=== PATIENT | male | born 1980 | race Caucasian/White ===

== ENCOUNTER 2023-08-17 17:57 | Outpatient (RCR) | payer OTHER, SELFPAY | END 2023-08-17 23:59 | disposition home or self-care (01) | LOC: RPT 17:57 | PROVIDERS: ATTENDING PHYSICIAN Family Medicine | DX: M54.51 Vertebrogenic low back pain (principal); M54.2 Cervicalgia | CPT/HCPCS: 97110; 97112 ==

== ENCOUNTER 2023-09-14 18:16 | Outpatient (RCR) | payer OTHER, SELFPAY | END 2023-09-14 23:59 | disposition home or self-care (01) | LOC: RPT 18:16 | PROVIDERS: ATTENDING PHYSICIAN Family Medicine | DX: M54.51 Vertebrogenic low back pain (principal); M54.2 Cervicalgia; Z73.6 Limitation of activities due to disability | CPT/HCPCS: 97110; 97112 ==

== ENCOUNTER 2023-10-19 17:55 | Outpatient (RCR) | payer OTHER, SELFPAY | END 2023-10-19 23:59 | disposition home or self-care (01) | LOC: RPT 17:55 | PROVIDERS: ATTENDING PHYSICIAN Family Medicine | DX: M54.51 Vertebrogenic low back pain (principal); M54.2 Cervicalgia; Z73.6 Limitation of activities due to disability; R26.2 Difficulty in walking, not elsewhere classified; M62.81 Muscle weakness (generalized) | CPT/HCPCS: 97010; 97110; 97112 ==

== ENCOUNTER 2024-06-26 18:44 | Emergency (ER) | payer BC, OTHER, SELFPAY ==
[2024-06-26 18:50] VITALS: BP 163/94
[2024-06-26 19:29] VITALS: BP 109/69
--- NOTE | 2024-06-26 19:32 | ED.GENMED ---
History of Present Illness
General
Chief Complaint: Chest Pain
Source: patient
Exam Limitations: none
Time Seen by Provider: 06/26/24 19:28
History of Present Illness
History of Present Illness:
See MDM
Past History
Past History
ED Past Medical History: Other (Lumbar radiculopathy) and Other (DVT/PE)
ED Past Surgical History: Orthopedic (Lumbar microdiscectomy)
Social History
Tobacco: Non-smoker
Alcohol: None
Drug: None
Personal: Single
Living: with family
Employment: Employed
Phy Exam
Physical Exam
Physical Exam:
See MDM
Scores
Heart Score for Chest Pain Patients
STEMI patient?: No
History: Slightly or Non-Suspicious
ECG: Normal
Age: </= 45 years
Risk Factors: 1 or 2 Risk Factors
Troponin: </= Normal Limit
Heart Score for Chest Pain Patients: 1
Heart Score Risk: 2.5% MACE over next 6 weeks
Course
Orders/Labs/Results
Orders:
Orders
06/26/24 18:49
Electrocardiogram (*1) Urgent
Reason for Study: Chest Pain
EKG- Treatment ONCE
06/26/24 19:28
Cardiac Monitoring- Treatment ONCE
IV Insert/Care/Rem.- Treatment PRN
06/26/24 19:31
Complete Blood Count/With Diff Urgent
Comprehensive Metabolic Panel Urgent
Troponin I Urgent
06/26/24 19:32
CT Chest Pe Study Urgent
Comment:
Reason For Exam: SOB, Chest pain
Morphine Sulfate 4 mg IV NOW STA
Abnormal Lab Results
06/26/24
19:31
Absolute Monos (auto) 0.7 H 10^3/uL
(0.1-0.6)
Carbon Dioxide 31 H mmol/L
(22-30)
06/26/24 19:31
06/26/24 19:31
Vital Signs
Initial and Last Documented VS:
Initial Vital Signs
Temp Pulse Resp BP Pulse Ox
98.7 F 92 16 163/94 98
06/26/24 18:50 06/26/24 18:50 06/26/24 18:50 06/26/24 18:50 06/26/24 18:50
Last Documented Vital Signs
Temp Pulse Resp BP Pulse Ox
98.7 F 92 16 163/94 98
06/26/24 18:50 06/26/24 18:50 06/26/24 18:50 06/26/24 18:50 06/26/24 18:50
MDM/Problems Addressed
Differential Diagnosis Includes:
HPI and MDM Narrative:
43-year-old male presenting for evaluation of chest pain that is relatively constant for the past 4 days. Although he is compliant with his Eliquis from prior PE, patient states this is similar presentation. EKG is nonischemic. Given his history,
will obtain CT PE. Given duration of symptoms, will obtain troponin
Physical exam
General: Well appearing and non-toxic
HEENT: protecting airway
Neck: appears supple
CV: No evidence of cyanosis. Regular rate and rhythm
Resp: No accessory muscle use. Lungs clear
Abd: Non-distended
Extremities: No deformities no leg edema or unilateral tenderness
Neuro: alert
Psych: Normal affect
Skin: Intact
Problems Addressed including Acute and Chronic Conditions affecting care:
1. Chest pain
Acuity: acute
Prognosis: stable
Details: Given duration of symptoms with nonischemic EKG, doubt ACS. Will obtain troponin. Given his prior history of PE, will obtain CT PE
Updates
Troponin negative. CT PE negative. Patient feels better and feels comfortable going home
Differential Diagnosis (but not limited to): Pleuritic chest pain, ACS, PE
Testing considered: Chest x-ray
Drug therapy (if applicable): OTC meds, please see d/c instruction regarding Rx drugs
Amount and/or Complexity of Data Reviewed
Clinical info obtained from: Patient
External data reviewed: N/A
Labs I independently reviewed (but not limited to): Troponin normal
Radiology: The CT scan was personally and independently reviewed. In addition, official CT report reviewed.
Pulse Ox: not hypoxic
EKG independently reviewed: Sinus rhythm, normal axis, no STEMI
Compliance Nurse: N/A
Critical Care: N/A
Risk of Complication:
Social Determinants of health: Good social support
Discussed with other providers: N/A
Escalation of Care includes Admit/Obs: After being observed in the Emergency Department, pt stable for discharge.
Occasional wrong word or 'sound a like' substitutions may have occurred due to the inherent limitations of voice recognition software. Read the chart carefully and recognize, using context, where substitutions have occurred.
*Critical Care Note
Total Time (30-74mins, 75-104mins- exclusive of procedures): Not Applicable
ED Attending Note
-
Portions of this chart may have been created with voice recognition software.� Occasional wrong word or��sound alike� substitutions may have occurred due to the inherent limitations of voice recognition software.
Discharge Plan
Departure
Patient Disposition: Home (Routine Discharge)
Date of Disposition: 06/26/24
Time of Disposition: 21:22
Patient with high blood pressure during this ER visit?: Yes
Discharge Problem:
Chest pain
Instructions: Chest Pain That Is Not Caused by the Heart (DC), BLOOD PRESSURE
Prescriptions:
No Action
sennosides [senna] 8.6 MG tablet
17.2 mg PO BID 0RF
acetaminophen [Tylenol Extra Strength] 500 MG tablet
1,000 mg PO Q6H Qty: 60 0RF
Rx Instructions:
Do NOT exceed >4000 mg daily.
docusate sodium 100 MG capsule
100 mg PO BID 0RF
magnesium hydroxide 30 ML suspension
30 ml PO HSPRN PRN (Reason: constipation) Qty: 7 0RF
Rx Instructions:
Take as needed for constipation unrelieved by Colace and Senna.
cephalexin 500 MG capsule
500 mg PO Q6H Qty: 60 0RF
Rx Instructions:
Take every 6 hours until finished.
Saccharomyces boulardii 250 MG capsule
250 mg PO BID Qty: 10 0RF
Rx Instructions:
Over the counter. Take while on antibiotic.
If unavailable, choose another probiotic.
apixaban [Eliquis] 5 MG tablet
2.5 mg PO BID Qty: 0 0RF
Rx Instructions:
Resume 01/15/22 AM per surgeon.
oxycodone 5 MG tablet
5 mg PO Q6HPRN PRN (Reason: moderate-severe pain) Qty: 30 0RF
Rx Instructions:
1 tab moderate pain or 2 if pain severe
Dx lami
ongoing therapy
cyclobenzaprine 10 MG tablet
10 mg PO TIDPRN PRN (Reason: spasm) Qty: 20 0RF
ondansetron 4 mg tablet,disintegrating
4 mg PO Q8H PRN (Reason: nausea and vomiting) 5 Days Qty: 10 0RF
Referrals:
NONE,* [Family Provider] -
Activity Restrictions/Additional Instructions:
Please return for any worsening symptoms.
You may return at any time if you have further concerns.
Please follow up with your doctor at the first available appointment, preferably this week.
Thank you for choosing [facility].
Interventions
Interventions:
*Risk Screen - Suicide Last Done: 06/26/24 20:30
*Neglect/Abuse Screening Last Done: 06/26/24 20:30
ED- Cardiac Assessment Last Done: 06/26/24 19:51
Discharge Date and Time
Print Language: SALVADOREAN
[2024-06-26 19:43] LABS: % Basophils 0.6 % (0-2); % Eosinophils 3.2 % (0-6); % Immature Granulocytes 0.2 % (0-0.5); % Lymphocytes 28.9 % (20.5-51.1); % Monocytes 7.4 % (1.7-9.3); % Neutrophils 59.7 % (42.2-75.2); Absolute Basophils 0.1 10^3/uL (0-0.2); Absolute Eosinophils 0.3 10^3/uL (0-0.7); Absolute Lymphocytes 2.9 10^3/uL (1.2-3.4); Absolute Monocytes 0.7 10^3/uL (0.1-0.6); Absolute Neutrophils 5.9 10^3/uL (1.4-6.5); Hematocrit 40.9 % (39.0-52.0); Hemoglobin 14.2 g/dL (13.0-18.0); Mean Corp Hgb Conc. 34.7 g/dL (33.0-37.0); Mean Corpuscular Hgb 29.5 pg (27.0-31.0); Mean Corpuscular Volume 84.9 fL (80.0-94.0); Mean Platelet Volume 9.7 fL (7.4-10.4); Nucleated Red Blood Cells % 0 % (-); Platelet Count 184 10^3/uL (130-400); Red Blood Cell Count 4.82 10^6/uL (4.70-6.10); White Blood Cell Count 9.9 10^3/uL (4.8-10.8)
[2024-06-26 19:53] VITALS: BMI 28.4
[2024-06-26 19:58] LABS: ALT (SGPT) 26 U/L (0-50); AST (SGOT) 29 U/L (17-59); Albumin 4.6 g/dl (3.5-5.0); Alkaline Phosphatase 50 U/L (38-126); Blood Urea Nitrogen 18 mg/dl (9-20); Calcium 9.7 mg/dl (8.4-10.2); Carbon Dioxide 31 mmol/L (22-30); Chloride 101 mmol/L (98-107); Estimated Creatinine Clearance 102 ml/min; Glucose 85 mg/dl (70-99); Sodium 140 mmol/L (135-145); Total Bilirubin 0.5 mg/dl (0.2-1.3); Total Protein 7.2 g/dl (6.3-8.2); eGFR > 60.00
[2024-06-26] MEDS: MORPHINE SULFATE 4 MG IV (20:03)
[2024-06-26 20:08] LABS: Troponin I < 0.012 ng/ml
[2024-06-26 21:20] VITALS: BP 119/69
== END 2024-06-26 21:45 | disposition home or self-care (01) ==
LOC: EMR 18:44
PROVIDERS: EMERGENCY PHYSICIAN Student in an Organized Health Care Education/Training Program; FAMILY PHYSICIAN Family Medicine
DX: R07.9 Chest pain, unspecified (principal); Z86.711 Personal history of pulmonary embolism; Z86.718 Personal history of other venous thrombosis and embolism; Z79.01 Long term (current) use of anticoagulants
CPT/HCPCS: 96374; 99284; 71275; 80053; 84484; 85025; 93005; Q9967

== ENCOUNTER 2024-10-04 13:06 | Inpatient (IN) | payer OTHER, SELFPAY ==
[2024-10-01 07:26] VITALS: BP 146/103
--- NOTE | 2024-10-01 08:00 | ED.GENMED ---
History of Present Illness
General
Chief Complaint: Musculo-Skeletal Complaint
Source: patient
Exam Limitations: none
Time Seen by Provider: 10/01/24 07:49
Nursing documentation reviewed up to this point in time: agreed with
History of Present Illness
History of Present Illness:
43-year-old male with past medical history of DVT/PE on Eliquis who presents to the emergency department for evaluation of left shoulder/chest pain. Patient reports pain started Monday night�he says he woke up with severe pain in the left scapular
region radiating towards the shoulder and left chest as well as the left side of his neck. His pain has been constant since then. Somewhat worse with movement but essentially consistent throughout. He reports a sharp stabbing pain 'like knives in
my back.' He does report some associated weakness/paresthesias in the left arm. He denies any shortness of breath. He denies any recent cough, fever, chills. He has not noticed any swelling or pain in the legs. He says that he did have similar
symptoms with a PE in the past but has been compliant with Eliquis. He denies any trauma or injury. He does note that he was seen at urgent care yesterday for the symptoms and was started on steroid pack and muscle relaxer neither of which has
helped; he has also tried Tylenol again with no response.
Past History
Past History
ED Past Medical History: Other (Lumbar radiculopathy) and Other (DVT/PE)
ED Past Surgical History: Orthopedic (Lumbar microdiscectomy)
Social History
Tobacco: Non-smoker
Alcohol: None
Drug: None
Personal: Single
Living: with family
Employment: Employed
Review of Systems
Review of Systems
All Other Systems: ROS reviewed and negative except as documented in HPI and ROS
Constitutional: Denies fever
Respiratory: Denies cough or trouble breathing
Cardiac: Reports chest pain; Denies palpitations
ABD/GI: Denies abdominal pain, nausea or vomiting
: Denies flank pain
Musculoskeletal: Reports joint pain (Shoulder pain/scapular pain) and neck pain
Neurological: Reports weakness and numbness; Denies headache
Phy Exam
Physical Exam
Physical Exam:
General: Awake, alert, oriented x3; appears uncomfortable
Head: Normocephalic, atraumatic
Eyes: Conjunctiva normal
Throat: Airway intact, handling secretions
Neck: Trachea midline, mild tenderness left paraspinal and upper trapezius region but no midline cervical tenderness
Back: No signs of trauma to the back or flank, mild tenderness in the suprascapular region but no tenderness in the thoracic or lumbar region
Lungs: Clear to auscultation bilaterally, no wheezing, rales, rhonchi
Heart: Regular rate and rhythm, no murmurs, gallops, or rubs; no anterior chest wall tenderness
Abd: Soft, non distended, nontender
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
Skin: no rash in area of concern
Extremities: No edema in extremities, no calf tenderness, equal pulses in all extremities
Scores
Heart Failure Risk
Heart Failure Risk Score: Not Applicable
Heart Score for Chest Pain Patients
STEMI patient?: No
History: Slightly or Non-Suspicious
ECG: Normal
Age: </= 45 years
Risk Factors: 1 or 2 Risk Factors
Troponin: </= Normal Limit
Heart Score for Chest Pain Patients: 1
Heart Score Risk: 2.5% MACE over next 6 weeks
Withdrawal Assessment of Alcohol
Withdrawal Assessment Completed?: Not applicable
Course
Orders/Labs/Results
Orders:
Orders
10/01/24 07:29
Electrocardiogram (*1) Urgent
Reason for Study: Chest Pain
EKG- Treatment ONCE
10/01/24 07:59
CT Chest PE Study Urgent
Comment:
Reason For Exam: left sided CP, scapular pain, h/o PE
10/01/24 08:00
Morphine Sulfate 4 mg IV NOW STA
10/01/24 08:22
Complete Blood Count/With Diff Urgent
Comprehensive Metabolic Panel Urgent
PTT Urgent
Prothrombin Time Urgent
Troponin I Urgent
10/01/24 10:43
Gabapentin [Neurontin] 100 mg PO NOW STA
HYDROmorphone [Dilaudid] 1 mg IV NOW STA
10/01/24 12:36
HYDROmorphone [Dilaudid] 0.5 mg IV NOW STA
Ondansetron Injectable [Zofran] 4 mg IV NOW STA
Abnormal Lab Results
10/01/24
08:22
WBC 11.9 H 10^3/uL
(4.8-10.8)
Abs Immat Gran (auto) 0.1 H 10^3/uL
(0-0.05)
Absolute Neuts (auto) 10.3 H 10^3/uL
(1.4-6.5)
Absolute Lymphs (auto) 1.1 L 10^3/uL
(1.2-3.4)
Immature Gran % 0.6 H %
(0-0.5)
Neutrophils % 86.3 H %
(42.2-75.2)
Lymphocytes % 9.4 L %
(20.5-51.1)
Glucose 120 H mg/dl
(70-99)
10/01/24 08:22
10/01/24 08:22
Vital Signs
Initial and Last Documented VS:
Initial Vital Signs
Temp Pulse Resp BP Pulse Ox
36.7 C 89 18 146/103 97
10/01/24 07:26 10/01/24 07:26 10/01/24 07:26 10/01/24 07:26 10/01/24 07:26
Last Documented Vital Signs
Temp Pulse Resp BP Pulse Ox
36.7 C 66 13 146/103 97
10/01/24 07:26 10/01/24 09:30 10/01/24 09:30 10/01/24 07:26 10/01/24 07:26
MDM/Problems Addressed
Differential Diagnosis Includes:
Radiculopathy, muscular strain/rotator cuff pathology, tendinitis, pulmonary embolism; aortic dissection, ACS considered much less likely clinically
MDM/Problems Addressed:
43-year-old male presents for evaluation of pain in the left shoulder/scapula radiating towards the chest, neck; associated weakness in the left arm. He denies any injury. He is concerned because he says he had similar symptoms with PE in the past
although has been maintained on Eliquis. Has been on steroid and muscle relaxer from urgent care yesterday but this did not help. He is hypertensive otherwise normal vitals. Physical exam as above. My clinical suspicion is that this is likely a
cervical radiculopathy. Nevertheless given his history we will check CT chest in an abundance of caution. Check basic labs, EKG, troponins. Will treat symptomatically. Reassess after the above.
Initial labs reviewed: CBC shows marginal leukocytosis 11.9, CMP no clinically significant abnormalities. Troponin undetectable and with consistent symptoms for over 24 hours this is sufficient to rule out acute IA. Awaiting results of CT. Vitals
have been stable.
CT head negative for any acute pathology. My clinical impression is that this is a cervical radiculopathy however his pain is quite extreme. He did not have any improvement with morphine he was given a dose of Dilaudid and gabapentin again no
improvement. Would hold on NSAIDs as he is on Eliquis. I do long discussion with the patient he feels that he can go home due to his degree of pain�admit for continued management of his pain. Case discussed with hospitalist.
Chronic conditions affecting care:
History of pulmonary embolism
Acute Exacerbation and/or Progression of Chronic Illness:
Acutely hypertensive likely from pain�treat symptomatically but hold on emergent antihypertensives for now
Acute Exacerbation and/or Progression of Chronic Illness: HTN
*Radiology
Radiology exam reviewed: radiology read reviewed
*Pulse Oximetry
Patient hypoxic: no
*EKG
Interpreted by ED Provider?: Yes
Heart Rate: 94
Rate: normal
Rhythm: sinus
[place]: normal axis
Interval: normal interval
QRS Pattern: normal QRS
Ischemia: non-specific ST changes
*Critical Care Note
Total Time (30-74mins, 75-104mins- exclusive of procedures): Not Applicable
Data Reviewed
Review of Other/Old Records Reveals: Labs and Records
Source: patient, records and family (Mother who is at bedside)
Patient Management
Discussion with other providers: Hospitalist (Discussed with hospitalist)
Escalation/DeEscalation of care consider admission/obs:
Admission indicated
ED Attending Note
-
Portions of this chart may have been created with voice recognition software.� Occasional wrong word or��sound alike� substitutions may have occurred due to the inherent limitations of voice recognition software.
Discharge Plan
Departure
Patient Disposition: Admit
Date of Disposition: 10/01/24
Time of Disposition: 12:35
Admit to doctor: Eric
Presentation/result/management discussed w/ accepting MD/DO: Hospitalist
Discharge Problem:
Left shoulder pain, Cervical radiculopathy
Prescriptions:
No Action
sennosides [senna] 8.6 MG tablet
17.2 mg PO BID 0RF
acetaminophen [Tylenol Extra Strength] 500 MG tablet
1,000 mg PO Q6H Qty: 60 0RF
Rx Instructions:
Do NOT exceed >4000 mg daily.
docusate sodium 100 MG capsule
100 mg PO BID 0RF
magnesium hydroxide 30 ML suspension
30 ml PO HSPRN PRN (Reason: constipation) Qty: 7 0RF
Rx Instructions:
Take as needed for constipation unrelieved by Colace and Senna.
cephalexin 500 MG capsule
500 mg PO Q6H Qty: 60 0RF
Rx Instructions:
Take every 6 hours until finished.
Saccharomyces boulardii 250 MG capsule
250 mg PO BID Qty: 10 0RF
Rx Instructions:
Over the counter. Take while on antibiotic.
If unavailable, choose another probiotic.
apixaban [Eliquis] 5 MG tablet
2.5 mg PO BID Qty: 0 0RF
Rx Instructions:
Resume 01/15/22 AM per surgeon.
oxycodone 5 MG tablet
5 mg PO Q6HPRN PRN (Reason: moderate-severe pain) Qty: 30 0RF
Rx Instructions:
1 tab moderate pain or 2 if pain severe
Dx lami
ongoing therapy
cyclobenzaprine 10 MG tablet
10 mg PO TIDPRN PRN (Reason: spasm) Qty: 20 0RF
ondansetron 4 mg tablet,disintegrating
4 mg PO Q8H PRN (Reason: nausea and vomiting) 5 Days Qty: 10 0RF
Referrals:
Chinmay Contreras DO [Family Provider] -
Interventions
Interventions:
*Risk Screen - Suicide Last Done: 10/01/24 07:26
*General Assessment Last Done: 10/01/24 07:26
*Neglect/Abuse Screening Last Done: 10/01/24 07:26
ED- Fall Risk Assessment Last Done: 10/01/24 08:11
*ED COVID-19 Vaccine History Last Done: 10/01/24 07:26
ED-Musculoskeletal Assessment Last Done: 10/01/24 08:11
Discharge Date and Time
Print Language: ALGERIAN
[2024-10-01 08:11] VITALS: BMI 29.2
[2024-10-01] MEDS: MORPHINE SULFATE 4 MG IV (08:23)
[2024-10-01 08:45] LABS: % Basophils 0.2 % (0-2); % Eosinophils 0.1 % (0-6); % Immature Granulocytes 0.6 % (0-0.5); % Lymphocytes 9.4 % (20.5-51.1); % Monocytes 3.4 % (1.7-9.3); % Neutrophils 86.3 % (42.2-75.2); Absolute Immature Granulocytes 0.1 10^3/uL (0-0.05); Absolute Lymphocytes 1.1 10^3/uL (1.2-3.4); Absolute Monocytes 0.4 10^3/uL (0.1-0.6); Absolute Neutrophils 10.3 10^3/uL (1.4-6.5); Hematocrit 44.3 % (39.0-52.0); Hemoglobin 14.7 g/dL (13.0-18.0); Mean Corp Hgb Conc. 33.2 g/dL (33.0-37.0); Mean Corpuscular Hgb 28.5 pg (27.0-31.0); Mean Corpuscular Volume 85.9 fL (80.0-94.0); Mean Platelet Volume 9.3 fL (7.4-10.4); Nucleated Red Blood Cells % 0 % (-); Platelet Count 194 10^3/uL (130-400); Red Blood Cell Count 5.16 10^6/uL (4.70-6.10); Red Cell Dist. Width 12.1 % (11.5-14.5); White Blood Cell Count 11.9 10^3/uL (4.8-10.8)
[2024-10-01 08:50] LABS: APTT 25.5 Sec (23.4-35.0); INR 1.09; PT 14.4 Sec (11.4-14.6)
[2024-10-01 08:56] LABS: ALT (SGPT) 33 U/L (0-50); AST (SGOT) 37 U/L (17-59); Alkaline Phosphatase 66 U/L (38-126); Blood Urea Nitrogen 15 mg/dl (9-20); Calcium 9.7 mg/dl (8.4-10.2); Carbon Dioxide 26 mmol/L (22-30); Chloride 104 mmol/L (98-107); Estimated Creatinine Clearance 113 ml/min; Glucose 120 mg/dl (70-99); Potassium 4.6 mmol/L (3.5-5.1); Sodium 140 mmol/L (135-145); Total Bilirubin 0.7 mg/dl (0.2-1.3); Total Protein 7.9 g/dl (6.3-8.2); eGFR > 60.00
[2024-10-01 09:08] LABS: Troponin I < 0.012 ng/ml
[2024-10-01] MEDS: NEURONTIN 100 MG PO ×3 (11:07→21:12)
[2024-10-01] MEDS: DILAUDID 1 MG IV (11:07)
[2024-10-01] MEDS: DILAUDID 0.5 MG IV (12:43)
[2024-10-01] MEDS: ZOFRAN 4 MG IV ×2 (12:43→16:07)
--- NOTE | 2024-10-01 12:56 | HPS.HSE ---
Family Physician
-
Family Physician: Chinmay Contreras
Chief Complaint
-
upper back pain
History of Present Illness
43-year-old male past medical history of right lower extremity DVT, PE on Eliquis, myositis, degenerative disease, spinal stenosis, spondylolisthesis status post prior lumbar L4-L5 decompression laminectomy in 2019, spinal fusion of L4-L5 in 2021,
diverticulitis status post sigmoid colon resection, presenting with left shoulder and chest pain which started 2 days ago. He woke up with severe pain in the left scapular region rating towards the shoulder and left chest close left side of his
neck. Pain radiates down the arm down to his thumb and index finger. Pain has been constant since then. Pain is worse with movement. He has sharp stabbing pain. He has weakness in the left upper extremity but denies numbness or tingling.
He has some element of chronic upper back pain but nothing like this. Denies any history of trauma.
He denies shortness of breath. Denies any recent cough, fevers or chills. Denies any swelling or pain in the legs. He has had similar symptoms from PE in the past has been compliant with Eliquis. He was seen in urgent care today and was started
on Medrol Dosepak and muscle relaxer which has not helped. He tried Tylenol without response.
Medical History
Past Medical History
Past Medical History: Reports Other ( right lower extremity DVT, PE on Eliquis, myositis, degenerative disease, spinal stenosis, spondylolisthesis status post prior lumbar L4-L5 decompression laminectomy in 2019, spinal fusion of L4-L5 in 2021,
diverticulitis status post sigmoid colon resection,)
Past Surgical History: Reports Other (L4-L5 laminectomy, sigmoid bowel resection, spinal fusion,)
Social History
Tobacco: Non-smoker
Alcohol: None
Drug: None
Family History
Family History: Not pertinent
Allergies / Home Medications
Allergies reflects when Allergies were last updated in [facility].
Home Medications with original date entered in [facility]
Allergy/Medication List:
Allergies
Allergy/AdvReac Type Severity Reaction Status Date / Time
No Known Allergies Allergy Verified 05/11/23 15:55
Home Medications
apixaban 5 mg tablet (Eliquis) 2.5 mg (1/2 x 5 mg) PO BID ##0 01/13/22
acetaminophen 500 mg tablet (Tylenol Extra Strength) 1,000 mg PO Q6HPRN PRN mild pain 10/01/24
apixaban 2.5 mg tablet (Eliquis) 2.5 mg PO BID 10/01/24
methylprednisolone 4 mg tablets in a dose pack 4 mg PO PER PKG DIR 10/01/24
Review of Systems
-
History Source: Patient
A 12 point ROS was completed and negative except as noted: Yes
Constitutional: Reports No Symptoms
EENT: Reports No Symptoms
Respiratory: Reports No Symptoms
Cardiac: Reports No Symptoms
Abdomen/GI: Reports No Symptoms
: Reports No Symptoms
Musculoskeletal: Reports See HPI
Skin: Reports No Symptoms
Neurological: Reports No Symptoms
Endocrine: Reports No Symptoms
Hematologic/Lymphatic: Reports No Symptoms
Psych: Reports No Symptoms
Physical Exam
Vital Signs
Vital Signs
Temp Pulse Resp BP Pulse Ox
98.1 F 66 13 146/103 97
10/01/24 07:26 10/01/24 09:30 10/01/24 09:30 10/01/24 07:26 10/01/24 07:26
Physical Exam
General: Well Developed, Well Nourished and No Apparent Distress
HEENT: NormoCephalic, Moist mucous membranes and Atraumatic
Respiratory: Clear
Cardiac: S1/S2 and Regular Rhythm; No Murmur or Rub
GI: Soft, Non Tender, Non Distended and Normal Bowel Sounds; No Organomegaly
Rectal: Deferred by Provider
Musculoskeletal: No Clubbing, No Cyanosis, No Edema and Other (tenderness left upper scapular region, tenderness of left deltoid and weakness of left upper extremity )
Skin: No Rash
Neuro: Nonfocal/grossly intact
Laboratory Results
-
10/01/24 08:22
10/01/24 08:22
Laboratory Results
PT 14.4 Sec (11.4-14.6) 10/01/24 08:22
INR 1.09 10/01/24 08:22
APTT 25.5 Sec (23.4-35.0) 10/01/24 08:22
Total Bilirubin 0.7 mg/dl (0.2-1.3) 10/01/24 08:22
AST 37 U/L (17-59) 10/01/24 08:22
ALT 33 U/L (0-50) 10/01/24 08:22
Alkaline Phosphatase 66 U/L (38-126) 10/01/24 08:22
Troponin I < 0.012 ng/ml 10/01/24 08:22
Data Reviewed
-
Lab Data: Labs Reviewed by me
Old Records: Reviewed
Impression/Plan
-
IMPRESSION:
PLAN:
# Cervical radiculopathy likely due to cervical disc disease
-Patient does have decreased strength in the left upper extremity
-CT PE shows no chest pathology
-Dilaudid, Tylenol, gabapentin, continue Medrol Dosepak
-Gabapentin 100 mg 3 times daily instead of Flexeril
-Cannot take NSAIDs due to history of DVT/PE
-Check cervical x-ray
-Consider cervical MRI given weakness of left upper extremity however outpatient follow-up is likely sufficient given only 2 days of symptoms
History of degenerative disc disease/spinal stenosis/spondylolisthesis status post prior L4-L5 laminectomy in 2019 and spinal fusion in 2021
History of DVT/PE
-Continue Eliquis
History of myositis
Diverticula status post bowel resection
Full code
DVT prophylaxis�Eliquis
Regular diet
[2024-10-01 13:02] VITALS: BP 137/77
[2024-10-01 15:55] VITALS: BP 166/57; BMI 28.4
[2024-10-01] MEDS: MEDROL 24 MG PO (16:48)
[2024-10-01] MEDS: ELIQUIS 2.5 MG PO (21:12)
[2024-10-01] MEDS: ROXICODONE 10 MG PO (22:12)
[2024-10-01 23:51] VITALS: BP 137/78
[2024-10-02] MEDS: TYLENOL 650 MG PO (04:34)
[2024-10-02 07:37] VITALS: BP 132/85
[2024-10-02] MEDS: NEURONTIN 100 MG PO ×3 (07:58→19:57)
[2024-10-02] MEDS: ELIQUIS 2.5 MG PO ×2 (07:58→19:57)
[2024-10-02] MEDS: MEDROL 20 MG PO (08:10)
[2024-10-02 10:40] LABS: % Basophils 0.1 % (0-2); % Eosinophils 0.2 % (0-6); % Immature Granulocytes 0.5 % (0-0.5); % Lymphocytes 12.7 % (20.5-51.1); % Monocytes 2.6 % (1.7-9.3); % Neutrophils 83.9 % (42.2-75.2); Absolute Immature Granulocytes 0.1 10^3/uL (0-0.05); Absolute Lymphocytes 1.7 10^3/uL (1.2-3.4); Absolute Monocytes 0.4 10^3/uL (0.1-0.6); Absolute Neutrophils 11.5 10^3/uL (1.4-6.5); Hematocrit 43.2 % (39.0-52.0); Hemoglobin 13.9 g/dL (13.0-18.0); Mean Corp Hgb Conc. 32.2 g/dL (33.0-37.0); Mean Corpuscular Hgb 28.3 pg (27.0-31.0); Mean Corpuscular Volume 87.8 fL (80.0-94.0); Mean Platelet Volume 9.7 fL (7.4-10.4); Nucleated Red Blood Cells % 0 % (-); Platelet Count 178 10^3/uL (130-400); Red Blood Cell Count 4.92 10^6/uL (4.70-6.10); Red Cell Dist. Width 12.2 % (11.5-14.5); White Blood Cell Count 13.7 10^3/uL (4.8-10.8)
[2024-10-02 11:14] LABS: ALT (SGPT) 26 U/L (0-50); AST (SGOT) 23 U/L (17-59); Albumin 4.7 g/dl (3.5-5.0); Alkaline Phosphatase 57 U/L (38-126); Blood Urea Nitrogen 17 mg/dl (9-20); Calcium 9.2 mg/dl (8.4-10.2); Carbon Dioxide 30 mmol/L (22-30); Chloride 97 mmol/L (98-107); Estimated Creatinine Clearance > 125 ml/min; Glucose 144 mg/dl (70-99); Sodium 137 mmol/L (135-145); Total Bilirubin 0.9 mg/dl (0.2-1.3); Total Protein 7.2 g/dl (6.3-8.2); eGFR > 60.00
--- NOTE | 2024-10-02 13:05 | W.PN.HOSP.TC ---
Today's Communication/Plan
-
Monitor vital signs see plan
Add Valium
Continue with pain management
Continue with steroids
Check shoulder x-ray
Assessment / Plan
Assessment / Plan
General: Well Developed, Well Nourished and No Apparent Distress
HEENT: NormoCephalic, Moist mucous membranes and Atraumatic
Respiratory: Clear
Cardiac: S1/S2 and Regular Rhythm; No Murmur or Rub
GI: Soft, Non Tender, Non Distended and Normal Bowel Sounds
Musculoskeletal: No Edema and Other (tenderness left upper scapular region, tenderness of left deltoid and weakness of left upper extremity )
Skin: No Rash
Neuro: Nonfocal/grossly intact
Cervical radiculopathy likely due to cervical disc disease
-Patient does have decreased strength in the left upper extremity
-CT PE shows no chest pathology
-Tylenol, gabapentin, continue Medrol Dosepak
-Gabapentin 100 mg 3 times daily instead of Flexeril
-Cannot take NSAIDs due to history of DVT/PE
cervical x-ray with degenerative disc disease at C5-C6.
-Consider cervical MRI given weakness of left upper extremity if symptoms do not improve
check CK
add valium
Check shoulder x-ray
History of degenerative disc disease/spinal stenosis/spondylolisthesis status post prior L4-L5 laminectomy in 2019 and spinal fusion in 2021
History of DVT/PE
-Continue Eliquis
History of myositis
Diverticula status post bowel resection
Full code
DVT prophylaxis�Eliquis
Anticipated Discharge: Within 24 hours
Subjective/Interval History
-
Date of Service: October 02, 2024
has pain
Objective Data
-
Labs:
Laboratory Results
10/02/24
10:00
WBC 13.7 H
Hgb 13.9
Hct 43.2
Plt Count 178
Sodium 137
Potassium 4.0
Chloride 97 L
Carbon Dioxide 30
BUN 17
Creatinine 0.9
Glucose 144 H
Calcium 9.2
Total Bilirubin 0.9
AST 23
ALT 26
Alkaline Phosphatase 57
Vital Signs:
Vital Signs
Temp Pulse Resp BP Pulse Ox
98 F 72 18 132/85 99
10/02/24 07:37 10/02/24 07:37 10/02/24 07:37 10/02/24 07:37 10/02/24 07:37
I&O
10/01/24 10/02/24 10/03/24
06:59 06:59 06:59
Intake Total 480 / 480
Balance 480 / 480
--- NOTE | 2024-10-02 13:07 | CM ---
Pt seen bedside w/ his mother. Initial assessment completed. Admitted for upper back pain.
Pt reports that he lives alone in a 2STH- 1 step to enter the home
Pt is independent w/ ambulation, denies any DME use
Denies SNF/VN/PT. Pt stated he did engage in OP therapy in the past
Address, point of contact and insurance verified
PCP: Dr. Contreras
Pharmacy: [facility]
Pt is currently admitted as OBS. OOBS form reviewed, pt given copy, copy placed on chart
PT/OT ordered, will await therapy recommendations if any
Plan: CM will cont to follow hospital course
[2024-10-02] MEDS: MORPHINE SULFATE 4 MG IV ×2 (13:17→19:57)
[2024-10-02] MEDS: VALIUM 2 MG PO ×2 (13:17→19:57)
[2024-10-02 13:38] LABS: Creatine Phosphokinase 366 U/L (55-170)
[2024-10-02 13:52] VITALS: BP 164/94; PULSE 80
[2024-10-02 15:00] VITALS: BP 135/75
[2024-10-02 23:22] VITALS: BP 135/64
[2024-10-03] MEDS: MORPHINE SULFATE 4 MG IV ×3 (03:43→22:47)
[2024-10-03 07:43] VITALS: BP 128/80
[2024-10-03] MEDS: ELIQUIS 2.5 MG PO ×2 (07:59→19:17)
[2024-10-03] MEDS: MEDROL 16 MG PO (07:59)
[2024-10-03] MEDS: VALIUM 2 MG PO ×2 (07:59→19:17)
[2024-10-03] MEDS: NEURONTIN 100 MG PO (07:59)
[2024-10-03 08:45] LABS: Creatine Phosphokinase 140 U/L (55-170)
[2024-10-03] MEDS: TYLENOL 1000 MG PO ×3 (10:46→22:46)
[2024-10-03 11:07] LABS: % Basophils 0.4 % (0-2); % Eosinophils 0.9 % (0-6); % Immature Granulocytes 0.3 % (0-0.5); % Lymphocytes 29.5 % (20.5-51.1); % Monocytes 7.9 % (1.7-9.3); Absolute Eosinophils 0.1 10^3/uL (0-0.7); Absolute Lymphocytes 3.1 10^3/uL (1.2-3.4); Absolute Monocytes 0.8 10^3/uL (0.1-0.6); Absolute Neutrophils 6.3 10^3/uL (1.4-6.5); Hematocrit 44.9 % (39.0-52.0); Hemoglobin 14.6 g/dL (13.0-18.0); Mean Corp Hgb Conc. 32.5 g/dL (33.0-37.0); Mean Corpuscular Hgb 28.5 pg (27.0-31.0); Mean Corpuscular Volume 87.5 fL (80.0-94.0); Mean Platelet Volume 9.5 fL (7.4-10.4); Nucleated Red Blood Cells % 0 % (-); Platelet Count 171 10^3/uL (130-400); Red Blood Cell Count 5.13 10^6/uL (4.70-6.10); Red Cell Dist. Width 12.3 % (11.5-14.5); White Blood Cell Count 10.3 10^3/uL (4.8-10.8)
--- NOTE | 2024-10-03 11:37 | W.PN.HOSP.TC ---
Today's Communication/Plan
-
Monitor vital signs see plan
Continue with steroids
Check ESR, CRP
Check C-spine MRI
Continue with pain management
Assessment / Plan
Assessment / Plan
General: Well Developed, Well Nourished and No Apparent Distress
HEENT: NormoCephalic, Moist mucous membranes and Atraumatic
Respiratory: Clear
Cardiac: S1/S2 and Regular Rhythm; No Murmur or Rub
GI: Soft, Non Tender, Non Distended and Normal Bowel Sounds
Musculoskeletal: No Edema and Other (tenderness left upper scapular region, tenderness of left deltoid and weakness of left upper extremity )
Skin: No Rash
Neuro: Nonfocal/grossly intact
Cervical radiculopathy likely due to cervical disc disease
-Patient does have decreased strength in the left upper extremity and significant pain
Given no improvement with medications, check MRI
If symptoms continue to not improve then may need further evaluation with orthopedics
-CT PE shows no chest pathology
-Tylenol, gabapentin, continue Medrol Dosepak
-Gabapentin 3 times daily instead of Flexeril
-Cannot take NSAIDs due to history of DVT/PE
cervical x-ray with degenerative disc disease at C5-C6.
Mild rhabdo on admission, now improved
added valium
shoulder x-ray without acute abnormality
Check ESR, CRP
History of degenerative disc disease/spinal stenosis/spondylolisthesis status post prior L4-L5 laminectomy in 2019 and spinal fusion in 2021
History of DVT/PE
-Continue Eliquis
History of myositis
Diverticula status post bowel resection
Full code
DVT prophylaxis�Eliquis
Anticipated Discharge: Within 24 hours
Subjective/Interval History
-
Date of Service: October 03, 2024
Still has significant pain and weakness in left upper extremity
Objective Data
-
Labs:
Laboratory Results
10/03/24
11:00
WBC 10.3
Hgb 14.6
Hct 44.9
Plt Count 171
Vital Signs:
Vital Signs
Temp Pulse Resp BP Pulse Ox
97.9 F 68 18 128/80 100
10/03/24 07:43 10/03/24 07:43 10/03/24 07:43 10/03/24 07:43 10/03/24 07:43
I&O
10/02/24 10/03/24 10/04/24
06:59 06:59 06:59
Intake Total 480 / 480 840 / 840
Balance 480 / 480 840 / 840
[2024-10-03 11:54] VITALS: BP 142/84; PULSE 94
[2024-10-03 13:23] LABS: C-Reactive Protein < 5.00 mg/L (0.0-10.00)
[2024-10-03 13:25] LABS: Erythrocyte Sed Rate 7 mm/hour (0-20)
[2024-10-03] MEDS: NEURONTIN 200 MG PO ×2 (15:13→21:20)
[2024-10-03 15:55] VITALS: BP 149/91
[2024-10-03 23:24] VITALS: BP 127/63
[2024-10-04] MEDS: TYLENOL 1000 MG PO ×3 (06:42→23:17)
[2024-10-04] MEDS: VALIUM 2 MG PO ×2 (06:42→19:23)
[2024-10-04 07:52] VITALS: BP 135/82
[2024-10-04] MEDS: ELIQUIS 2.5 MG PO ×2 (07:54→19:23)
[2024-10-04] MEDS: NEURONTIN 200 MG PO ×2 (07:54→16:10)
[2024-10-04] MEDS: MEDROL 12 MG PO (07:58)
--- NOTE | 2024-10-04 13:05 | W.PN.HOSP.TC ---
Today's Communication/Plan
-
Monitor vital signs see plan
Pain control
Neurosurgery evaluation
Continue with steroids
Assessment / Plan
Assessment / Plan
General: Well Developed, Well Nourished and No Apparent Distress
HEENT: NormoCephalic, Moist mucous membranes and Atraumatic
Respiratory: Clear
Cardiac: S1/S2 and Regular Rhythm; No Murmur or Rub
GI: Soft, Non Tender, Non Distended and Normal Bowel Sounds
Musculoskeletal: No Edema and Other (tenderness left upper scapular region, tenderness of left deltoid and weakness of left upper extremity )
Skin: No Rash
Neuro: Nonfocal/grossly intact
Cervical radiculopathy likely due to cervical disc disease
-Patient does have decreased strength in the left upper extremity and significant pain
Given no improvement with medications, checked MRI, MRI 10/03 with possible C6-C7 cord compression and central canal stenosis. No evidence for myelopathic signal. Neurosurgery consulted
-CT PE shows no chest pathology
-Tylenol, gabapentin, continue Medrol Dosepak
-Gabapentin 3 times daily instead of Flexeril
-Cannot take NSAIDs due to history of DVT/PE
cervical x-ray with degenerative disc disease at C5-C6.
Mild rhabdo on admission, now improved
added valium
shoulder x-ray without acute abnormality
ESR, CRP normal
History of degenerative disc disease/spinal stenosis/spondylolisthesis status post prior L4-L5 laminectomy in 2019 and spinal fusion in 2021
History of DVT/PE
-Continue Eliquis
History of myositis
Diverticula status post bowel resection
Full code
DVT prophylaxis�Eliquis
Anticipated Discharge: 24 - 48 hours
Subjective/Interval History
-
Date of Service: October 04, 2024
Still has left arm weakness and pain
Objective Data
-
Vital Signs:
Vital Signs
Temp Pulse Resp BP Pulse Ox
97.9 F 71 18 135/82 100
10/04/24 07:52 10/04/24 07:52 10/04/24 07:52 10/04/24 07:52 10/04/24 07:52
I&O
10/03/24 10/04/24 10/05/24
06:59 06:59 06:59
Intake Total 840 / 840 1080 / 1080
Balance 840 / 840 1080 / 1080
[2024-10-04] MEDS: MORPHINE SULFATE 4 MG IV ×2 (13:12→23:17)
--- NOTE | 2024-10-04 13:35 | CON.NS ---
Consultation
-
Date/Time Consultation Performed: 13:35 : 10/04/2024
Performing Provider: Kady
Chief Complaint
History of Present Illness
This is a neurosurgical consultation on a 43-year-old gentleman with active medical issues including myositis, degenerative disc disease, spinal stenosis, spondylolisthesis status post Lami and fusion, diverticulitis, who presented with left-sided
shoulder pain, chest pain started several days prior. He reported severe pain in the left scapular region, and radiating down to his thumb and index finger. He does have a history of having pulmonary embolus, and is on Eliquis for this. He was
admitted for further management of cervical radiculopathy, and ruled out for pulmonary embolus. MRI of the cervical spine was performed. He also was noted to have mild rhabdomyolysis on admission, which is since improved. He has been started on
gabapentin, Medrol Dosepak, Tylenol.
He was noted to have decreased strength in the left arm with significant pain. Neurosurgery consulted for further evaluation. Valium was also added as a muscle relaxant.
Patient seen and examined. He reports that the symptoms started immediately, with severe left-sided neck pain, left shoulder, and left upper extremity pain. Denies any lower extremity symptoms.
Review of Systems
-
10 point review of systems including constitutional, ENT, cardiovascular, respiratory, GI, , and neurologic, hematologic, neurologic, musculoskeletal, was performed, and was negative except for as stated in HPI.
Medication and Allergies
Home Medications
Home Medications
�Medication �Instructions �Recorded
acetaminophen 500 mg tablet 1,000 mg PO Q6HPRN PRN mild pain 10/01/24
(Tylenol Extra Strength)
apixaban 2.5 mg tablet (Eliquis) 2.5 mg PO BID 10/01/24
methylprednisolone 4 mg tablets in 4 mg PO PER PKG DIR 10/01/24
a dose pack
Allergies
Allergies
Allergy/AdvReac Type Severity Reaction Status Date / Time
No Known Allergies Allergy Verified 05/11/23 15:55
Physical Exam
-
Exam:
Awake, alert, mild distress. Ice pack on left shoulder
Able to sit up from a supine position
Limited range of motion of neck in both flexion, extension, bilateral lateral rotation, secondary to spasm.
Cranials 2 through 12 are grossly intact
Motor: 5/5 strength in right upper extremity in all muscle groups. Left arm 4/5 strength diffusely, increasingly pain limited proximally in left deltoid, and biceps, with give way weakness
Kendall sign absent.
Head is normocephalic atraumatic
Neck is supple
Breathing nonlabored
Cardiac: Regular rate
abdomen is soft
Extremities are warm
MRI cervical spine performed on 10/03/2024 was reviewed. Images were personally viewed and interpreted by me. There is straightening of the cervical lordosis, likely indicative of spasm. Patient has evidence of broad-based disc osteophyte
complexes at C5-C6, C6-C7 which causes bilateral foraminal impingement. I see no obvious evidence of cord signal change at these levels. 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
Problems
-
Problem Status Onset Code
Cervical radiculopathy M54.12
Left shoulder pain M25.512
Assessment / Plan
-
This is a 43-year-old gentleman who presents with neck pain, and bilateral arm, left upper extremity pain and weakness. Cervical MRI demonstrates multilevel cervical spondylosis, without any cord signal change.
Recommend treating patient for cervical radiculopathy. Continue with anti-inflammatories, can trial dexamethasone 10 mg IV x 1, and then 4 mg every 6 hours x 24 hours. If patient responds, can then transition back to Medrol Dosepak for discharge.
Agree with muscle relaxants
Agree with gabapentin 300 mg 3 times daily
Physical therapy as outpatient
Can consider cervical epidural injection either inpatient/outpatient upon discharge. If patient fails to respond, or continues to have persistent symptoms, can follow-up as an outpatient.
--- NOTE | 2024-10-04 14:18 | CM ---
Chart reviewed for d/c planning. Care ongoing at this time.
Per chart, neurosurgery eval ordered
CM will cont to follow for d/c planning
Plan: Home; no needs
[2024-10-04 15:40] VITALS: BP 130/82
[2024-10-04] MEDS: DECADRON 10 MG IV (17:00)
[2024-10-04] MEDS: PROTONIX 40 MG PO (17:01)
[2024-10-04] MEDS: DECADRON 4 MG IV (21:59)
[2024-10-04] MEDS: NEURONTIN 300 MG PO (21:59)
[2024-10-04 23:58] VITALS: BP 119/83
[2024-10-05] MEDS: DECADRON 4 MG IV ×4 (04:15→22:15)
[2024-10-05] MEDS: MORPHINE SULFATE 4 MG IV ×2 (04:20→23:08)
[2024-10-05 07:35] VITALS: BP 145/90
[2024-10-05 08:15] LABS: % Basophils 0.1 % (0-2); % Immature Granulocytes 1.4 % (0-0.5); % Lymphocytes 5.2 % (20.5-51.1); % Monocytes 1.8 % (1.7-9.3); % Neutrophils 91.5 % (42.2-75.2); Absolute Immature Granulocytes 0.2 10^3/uL (0-0.05); Absolute Lymphocytes 0.8 10^3/uL (1.2-3.4); Absolute Monocytes 0.3 10^3/uL (0.1-0.6); Absolute Neutrophils 13.9 10^3/uL (1.4-6.5); Hematocrit 46.8 % (39.0-52.0); Hemoglobin 15.6 g/dL (13.0-18.0); Mean Corp Hgb Conc. 33.3 g/dL (33.0-37.0); Mean Corpuscular Hgb 28.3 pg (27.0-31.0); Mean Corpuscular Volume 84.8 fL (80.0-94.0); Mean Platelet Volume 9.2 fL (7.4-10.4); Nucleated Red Blood Cells % 0 % (-); Platelet Count 201 10^3/uL (130-400); Red Blood Cell Count 5.52 10^6/uL (4.70-6.10); Red Cell Dist. Width 11.9 % (11.5-14.5); White Blood Cell Count 15.2 10^3/uL (4.8-10.8)
[2024-10-05 08:36] LABS: Blood Urea Nitrogen 21 mg/dl (9-20); Calcium 9.6 mg/dl (8.4-10.2); Carbon Dioxide 21 mmol/L (22-30); Chloride 103 mmol/L (98-107); Estimated Creatinine Clearance > 125 ml/min; Glucose 123 mg/dl (70-99); Potassium 4.9 mmol/L (3.5-5.1); Sodium 137 mmol/L (135-145); eGFR > 60.00
[2024-10-05] MEDS: TYLENOL 1000 MG PO ×3 (08:55→23:06)
[2024-10-05] MEDS: FLUSH (NSS) 1 FLUSH IV ×3 (08:55→16:21)
[2024-10-05] MEDS: PROTONIX 40 MG PO (08:55)
[2024-10-05] MEDS: NEURONTIN 300 MG PO ×3 (08:55→22:15)
[2024-10-05] MEDS: VALIUM 2 MG PO ×2 (08:55→19:59)
[2024-10-05] MEDS: ELIQUIS 2.5 MG PO ×2 (08:55→19:59)
[2024-10-05 09:02] LABS: Erythrocyte Sed Rate 7 mm/hour (0-20)
[2024-10-05] MEDS: LIDOCAINE 4% PATCH 1 PATCH TOPICAL (09:25)
[2024-10-05] MEDS: ULTRAM 50 MG PO ×3 (10:17→22:15)
--- NOTE | 2024-10-05 11:58 | W.PN.HOSP.TC ---
Today's Communication/Plan
-
Monitor vital signs see plan
Added lidocaine patch, tramadol
Continue with Valium, gabapentin
Continue with IV steroids
Check carotid Dopplers
Assessment / Plan
Assessment / Plan
General: Well Developed, Well Nourished and No Apparent Distress
HEENT: NormoCephalic, Moist mucous membranes and Atraumatic
Respiratory: Clear
Cardiac: S1/S2 and Regular Rhythm; No Murmur or Rub
GI: Soft, Non Tender, Non Distended and Normal Bowel Sounds
Musculoskeletal: No Edema and Other (tenderness left upper scapular region, tenderness of left deltoid and weakness of left upper extremity )
Skin: No Rash
Neuro: Nonfocal/grossly intact
Cervical radiculopathy likely due to cervical disc disease
-Patient does have decreased strength in the left upper extremity and significant pain
Given no improvement with medications, checked MRI, MRI 10/03 with possible C6-C7 cord compression and central canal stenosis. No evidence for myelopathic signal. Neurosurgery following, recommended Decadron. If symptoms do not improve then will
need possible cervical epidural injection
-CT PE shows no chest pathology
-Tylenol, gabapentin, Valium, added tramadol
cervical x-ray with degenerative disc disease at C5-C6.
Mild rhabdo on admission, now improved
added valium
shoulder x-ray without acute abnormality
ESR, CRP normal
Check carotid Doppler
History of degenerative disc disease/spinal stenosis/spondylolisthesis status post prior L4-L5 laminectomy in 2019 and spinal fusion in 2021
History of DVT/PE
-Continue Eliquis
History of myositis
Diverticula status post bowel resection
Full code
DVT prophylaxis�Eliquis
Anticipated Discharge: 24 - 48 hours
Subjective/Interval History
-
Date of Service: October 05, 2024
Still has pain
Objective Data
-
Labs:
Laboratory Results
10/05/24
07:21
WBC 15.2 H
Hgb 15.6
Hct 46.8
Plt Count 201
Sodium 137
Potassium 4.9
Chloride 103
Carbon Dioxide 21 L
BUN 21 H
Creatinine 0.7
Glucose 123 H
Calcium 9.6
Vital Signs:
Vital Signs
Temp Pulse Resp BP Pulse Ox
98.0 F 92 18 145/90 97
10/05/24 07:35 10/05/24 07:35 10/05/24 07:35 10/05/24 07:35 10/05/24 08:50
I&O
10/04/24 10/05/24 10/06/24
06:59 06:59 06:59
Intake Total 1080 / 1080 480 / 480
Balance 1080 / 1080 480 / 480
[2024-10-05] MEDS: COLACE 100 MG PO ×2 (12:16→19:59)
[2024-10-05 15:25] VITALS: BP 124/87
--- NOTE | 2024-10-05 16:09 | PTCARENOTE ---
Pt AAO x3, SABA; OOB ambulatory in room; LUE sl weak/decreased hand grasp; pt still c/o jones posterior neck/Lt shoulder; minimal effect from pain meds. Uses Lt arm sling at times; prn ice pack to Lt upper back/shoulder. VSS. On room air- pulseox
96%,no SOB noted. Abd soft, rounded, re PO well. Voiding in BR without difficulty. Resting in bed at present. Will continue to monitor.
[2024-10-05 23:53] VITALS: BP 127/75
[2024-10-06] MEDS: ULTRAM 50 MG PO ×4 (04:23→21:44)
[2024-10-06] MEDS: DECADRON 4 MG IV ×4 (04:24→21:45)
[2024-10-06 07:01] LABS: % Basophils 0.1 % (0-2); % Immature Granulocytes 0.9 % (0-0.5); % Lymphocytes 4.9 % (20.5-51.1); % Monocytes 3.3 % (1.7-9.3); % Neutrophils 90.8 % (42.2-75.2); Absolute Immature Granulocytes 0.2 10^3/uL (0-0.05); Absolute Lymphocytes 0.9 10^3/uL (1.2-3.4); Absolute Monocytes 0.6 10^3/uL (0.1-0.6); Absolute Neutrophils 16.9 10^3/uL (1.4-6.5); Hematocrit 44.6 % (39.0-52.0); Hemoglobin 15.1 g/dL (13.0-18.0); Mean Corp Hgb Conc. 33.9 g/dL (33.0-37.0); Mean Corpuscular Volume 85.6 fL (80.0-94.0); Mean Platelet Volume 9.5 fL (7.4-10.4); Nucleated Red Blood Cells % 0 % (-); Platelet Count 204 10^3/uL (130-400); Red Blood Cell Count 5.21 10^6/uL (4.70-6.10); White Blood Cell Count 18.7 10^3/uL (4.8-10.8)
[2024-10-06 07:55] VITALS: BP 135/76
[2024-10-06] MEDS: PROTONIX 40 MG PO (08:06)
[2024-10-06] MEDS: VALIUM 2 MG PO ×2 (08:07→19:58)
[2024-10-06] MEDS: NEURONTIN 300 MG PO ×3 (08:07→21:44)
[2024-10-06] MEDS: COLACE 100 MG PO ×2 (08:07→19:58)
[2024-10-06] MEDS: LIDOCAINE 4% PATCH 1 PATCH TOPICAL (08:07)
[2024-10-06] MEDS: TYLENOL 1000 MG PO ×3 (08:07→23:11)
[2024-10-06] MEDS: ELIQUIS 2.5 MG PO ×2 (08:09→19:58)
[2024-10-06 08:51] LABS: Blood Urea Nitrogen 24 mg/dl (9-20); Calcium 9.3 mg/dl (8.4-10.2); Carbon Dioxide 26 mmol/L (22-30); Chloride 101 mmol/L (98-107); Estimated Creatinine Clearance > 125 ml/min; Glucose 113 mg/dl (70-99); Potassium 4.8 mmol/L (3.5-5.1); Sodium 137 mmol/L (135-145); eGFR > 60.00
--- NOTE | 2024-10-06 10:49 | W.PN.HOSP.TC ---
Today's Communication/Plan
-
Monitor vital signs see plan
Continue with pain management, if does not improve then will need cervical epidural injection
Neurosurgery following
Continue with IV steroids
carotid US pending
Assessment / Plan
Assessment / Plan
General: Well Developed, Well Nourished and No Apparent Distress
HEENT: NormoCephalic, Moist mucous membranes and Atraumatic
Respiratory: Clear
Cardiac: S1/S2 and Regular Rhythm; No Murmur or Rub
GI: Soft, Non Tender, Non Distended and Normal Bowel Sounds
Musculoskeletal: No Edema and Other (tenderness left upper scapular region, tenderness of left deltoid and weakness of left upper extremity )
Skin: No Rash
Neuro: Nonfocal/grossly intact
Cervical radiculopathy likely due to cervical disc disease
-Patient does have decreased strength in the left upper extremity and significant pain
Given no improvement with medications, checked MRI, MRI 10/03 with possible C6-C7 cord compression and central canal stenosis. No evidence for myelopathic signal. Neurosurgery following, recommended Decadron. If symptoms do not improve then will
need possible cervical epidural injection
-CT PE shows no chest pathology
-Tylenol, gabapentin, Valium, added tramadol
cervical x-ray with degenerative disc disease at C5-C6.
Mild rhabdo on admission, now improved
added valium
shoulder x-ray without acute abnormality
ESR, CRP normal
Check carotid Doppler pending
Leukocytosis likely secondary to IV steroids
History of degenerative disc disease/spinal stenosis/spondylolisthesis status post prior L4-L5 laminectomy in 2019 and spinal fusion in 2021
History of DVT/PE
-Continue Eliquis
History of myositis
Diverticula status post bowel resection
Full code
DVT prophylaxis�Eliquis
Anticipated Discharge: 24 - 48 hours
Subjective/Interval History
-
Date of Service: October 06, 2024
still has pain
Objective Data
-
Labs:
Laboratory Results
10/06/24 10/06/24
06:43 07:59
WBC 18.7 H
Hgb 15.1
Hct 44.6
Plt Count 204
Sodium Cancelled 137
Potassium Cancelled 4.8
Chloride Cancelled 101
Carbon Dioxide Cancelled 26
BUN Cancelled 24 H
Creatinine Cancelled 0.8
Glucose Cancelled 113 H
Calcium Cancelled 9.3
Vital Signs:
Vital Signs
Temp Pulse Resp BP Pulse Ox
97.4 F 66 16 135/76 96
10/06/24 07:55 10/06/24 07:55 10/06/24 07:55 10/06/24 07:55 10/06/24 07:55
I&O
10/05/24 10/06/24 10/07/24
06:59 06:59 06:59
Intake Total 480 / 480 1260 / 1260
Balance 480 / 480 1260 / 1260
[2024-10-06 15:55] VITALS: BP 130/75
[2024-10-06] MEDS: MORPHINE SULFATE 4 MG IV (23:10)
[2024-10-06 23:55] VITALS: BP 129/76
[2024-10-07] MEDS: ULTRAM 50 MG PO ×3 (05:15→15:46)
[2024-10-07] MEDS: DECADRON 4 MG IV ×3 (05:16→15:46)
[2024-10-07] MEDS: MORPHINE SULFATE 4 MG IV (06:06)
[2024-10-07 07:47] LABS: % Basophils 0.1 % (0-2); % Immature Granulocytes 1.1 % (0-0.5); % Lymphocytes 6.9 % (20.5-51.1); % Monocytes 4.3 % (1.7-9.3); % Neutrophils 87.6 % (42.2-75.2); Absolute Immature Granulocytes 0.2 10^3/uL (0-0.05); Absolute Lymphocytes 1.1 10^3/uL (1.2-3.4); Absolute Monocytes 0.7 10^3/uL (0.1-0.6); Absolute Neutrophils 14.1 10^3/uL (1.4-6.5); Hematocrit 43.5 % (39.0-52.0); Hemoglobin 14.1 g/dL (13.0-18.0); Mean Corp Hgb Conc. 32.4 g/dL (33.0-37.0); Mean Corpuscular Hgb 28.1 pg (27.0-31.0); Mean Corpuscular Volume 86.8 fL (80.0-94.0); Mean Platelet Volume 9.5 fL (7.4-10.4); Nucleated Red Blood Cells % 0 % (-); Platelet Count 211 10^3/uL (130-400); Red Blood Cell Count 5.01 10^6/uL (4.70-6.10); Red Cell Dist. Width 12.1 % (11.5-14.5); White Blood Cell Count 16.1 10^3/uL (4.8-10.8)
[2024-10-07 08:03] LABS: Blood Urea Nitrogen 23 mg/dl (9-20); Calcium 8.9 mg/dl (8.4-10.2); Carbon Dioxide 28 mmol/L (22-30); Chloride 97 mmol/L (98-107); Estimated Creatinine Clearance > 125 ml/min; Glucose 113 mg/dl (70-99); Potassium 4.8 mmol/L (3.5-5.1); Sodium 134 mmol/L (135-145); eGFR > 60.00
[2024-10-07 08:08] VITALS: BP 125/62
[2024-10-07] MEDS: ELIQUIS 2.5 MG PO (08:22)
[2024-10-07] MEDS: VALIUM 2 MG PO (08:22)
[2024-10-07] MEDS: NEURONTIN 300 MG PO ×2 (08:22→15:46)
[2024-10-07] MEDS: TYLENOL 1000 MG PO ×2 (08:22→15:46)
[2024-10-07] MEDS: PROTONIX 40 MG PO (08:22)
[2024-10-07] MEDS: LIDOCAINE 4% PATCH 1 PATCH TOPICAL (08:23)
[2024-10-07] MEDS: COLACE 100 MG PO (08:23)
--- NOTE | 2024-10-07 08:45 | W.PN.HOSP.TC ---
Addendum entered and electronically signed by Cosmo Dhillon DO 10/07/24 16:38:
I spoke with neurosurgery service. They do not recommend surgical intervention at this point in time.
Unable to do epidural steroid injection to cervical spine as interventional radiology cannot technically perform nor is it safe to do so in the setting of anticoagulation use.
Stable for discharge home today. Discussed with neurosurgery. Outpatient follow-up.
Patient already has Medrol Dosepak at home and he will complete the taper.
Discharge instructions discussed with patient. Prescription sent to his pharmacy.
Original Note:
Today's Communication/Plan
-
IR consult
Stop Valium
Baclofen
Assessment / Plan
Assessment / Plan
General: Well Developed, Well Nourished and No Apparent Distress
HEENT: NormoCephalic, Moist mucous membranes and Atraumatic
Respiratory: Clear
Cardiac: S1/S2 and Regular Rhythm; No Murmur or Rub
GI: Soft, Non Tender, Non Distended and Normal Bowel Sounds
Musculoskeletal: No Edema and Other (tenderness left upper scapular region, tenderness of left deltoid and weakness of left upper extremity )
Skin: No Rash
Neuro: Nonfocal/grossly intact
Acute cervical radiculopathy - likely due to degenerative cervical disc disease
-Patient does have decreased strength in the left upper extremity and significant pain
Given no improvement with medications, checked MRI, MRI 10/03 with possible C6-C7 cord compression and central canal stenosis. No evidence for myelopathic signal. Neurosurgery following, recommended Decadron.
Given persistent symptoms will ask IR for epidural steroid injection. Will discuss holding Eliquis prior to injection. Unfortunately got a dose this morning.
-CT PE shows no chest pathology
cervical x-ray with degenerative disc disease at C5-C6.
Mild rhabdo on admission, now improved
shoulder x-ray without acute abnormality
ESR, CRP normal
Check carotid Doppler pending
Leukocytosis likely secondary to IV steroids
Intractable hiccups -will start baclofen which may also help with his left arm pain. Stop Valium.
History of degenerative disc disease/spinal stenosis/spondylolisthesis - status post prior L4-L5 laminectomy in 2019 and spinal fusion in 2021
History of DVT/PE
-Continue Eliquis
History of myositis
Diverticula status post bowel resection
Full code
DVT prophylaxis�Eliquis
Anticipated Discharge: > 48 hours
Subjective/Interval History
-
Date of Service: October 07, 2024
Patient seen and examined. Complaining of left upper extremity pain and weakness. No difference compared to yesterday.
Objective Data
-
Labs:
Laboratory Results
10/07/24
07:03
WBC 16.1 H
Hgb 14.1
Hct 43.5
Plt Count 211
Sodium 134 L
Potassium 4.8
Chloride 97 L
Carbon Dioxide 28
BUN 23 H
Creatinine 0.8
Glucose 113 H
Calcium 8.9
Vital Signs:
Vital Signs
Temp Pulse Resp BP Pulse Ox
98.2 F 63 18 125/62 98
10/07/24 08:08 10/07/24 08:08 10/07/24 08:08 10/07/24 08:08 10/07/24 08:08
I&O
10/06/24 10/07/24 10/08/24
06:59 06:59 06:59
Intake Total 1260 / 1260 1440 / 1440
Balance 1260 / 1260 1440 / 1440
Review of Systems
-
History Source: Patient
All other systems: Reviewed and negative
[2024-10-07] MEDS: LIORESAL 5 MG PO ×2 (09:22→15:57)
--- NOTE | 2024-10-07 11:30 | CM ---
Chart reviewed for d/c planning. Care ongoing at this time.
IR consulted
Therapy rec OP therapy, no skilled needs at this time. If pt agreeable to OP therapy, will need script at d/c
Plan: Home when stable
[2024-10-07 14:30] VITALS: BP 171/89; PULSE 95; O2SAT 97
[2024-10-07 15:05] VITALS: BP 122/77
--- NOTE | 2024-10-07 16:22 | PN.NS ---
Subjective
-
continues with arm pain. unable to get [facility] as inpatient
Physical Exam
-
Exam:
Awake, alert, mild distress. Ice pack on left shoulder
Able to sit up from a supine position
Limited range of motion of neck in both flexion, extension, bilateral lateral rotation, secondary to spasm.
Cranials 2 through 12 are grossly intact
Motor: 5/5 strength in right upper extremity in all muscle groups. Left arm 4/5 tricep weakness, and WE weakness. Giveway bicep/deltooid weakness
Kendall sign absent.
Head is normocephalic atraumatic
Neck is supple
Breathing nonlabored
Cardiac: Regular rate
abdomen is soft
Extremities are warm
MRI cervical spine performed on 10/03/2024 was reviewed. Images were personally viewed and interpreted by me. There is straightening of the cervical lordosis, likely indicative of spasm. Patient has evidence of broad-based disc osteophyte
complexes at C5-C6, C6-C7 which causes bilateral foraminal impingement. I see no obvious evidence of cord signal change at these levels. 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
Problems
-
Problem Status Onset Code
Cervical radiculopathy M54.12
Left shoulder pain M25.512
Assessment / Plan
-
This is a 43-year-old gentleman who presents with neck pain, and bilateral arm, left upper extremity pain and weakness. Cervical MRI demonstrates multilevel cervical spondylosis, without any cord signal change.
Mr. Pope is suffering with his cervical radiculopathy. I believe his C5-6 and C6-7 levels of the cause of his symptoms.
Given the short duration of his symptoms at this time I believe we likely will be able to handle this as an outpatient. I recommended discharge followed by short interval follow-up this week if possible in the office with plans for referral for
epidural steroid injection. My office will help expedite a visit with pain management physician.
1. Recommend patient discharged on oral pain medications and gabapentin
2. There are no acute neurosurgical interventions we discussed surgical versus nonsurgical management. While he does have some mild weakness I do not believe surgery at this time is indicated without a trial of conservative therapy.
Today's Communication
-
--- NOTE | 2024-10-07 16:37 | W.DS.TRANS ---
DC Summary - Certified Surgical Assistant
-
Discharge Instructions:
Discharge Diagnosis/Procedures Cervical radiculopathy
Diet Regular
Activity With assistance
Driving Restrictions No driving
Bathing Restrictions None
Instructions:
Stand-Alone Forms:
Changes to Home Medications: No
Discharge Medications:
DC Medications w/original date entered in [employer]
apixaban 2.5 mg tablet (Eliquis) 2.5 mg PO BID 10/01/24
methylprednisolone 4 mg tablets in a dose pack 4 mg PO PER PKG DIR 10/01/24
baclofen 5 mg tablet 5 mg PO TID #21 tabs 10/07/24
gabapentin 300 mg capsule 300 mg PO TID #90 caps 10/07/24
lidocaine 4 % topical patch 1 patch topical DAILY #7 ea 10/07/24
tramadol 50 mg tablet 50 mg PO Q6H PRN severe pain #30 tabs 10/07/24
Home Medication Changes
Pending Results: No
== END 2024-10-07 17:30 | disposition home or self-care (01) | DRG 74 ==
LOC: 4 EAST ACU 13:06
PROVIDERS: Internal Medicine; ADMITTING PHYSICIAN Hospitalist; ATTENDING PHYSICIAN Hospitalist; EMERGENCY PHYSICIAN Emergency Medicine; FAMILY PHYSICIAN Family Medicine; OTHER PHYSICIAN Neurological Surgery
DX: M54.12 Radiculopathy, cervical region (principal); M62.82 Rhabdomyolysis; G95.20 Unspecified cord compression; Z79.01 Long term (current) use of anticoagulants; Z86.711 Personal history of pulmonary embolism; Z86.718 Personal history of other venous thrombosis and embolism; M48.00 Spinal stenosis, site unspecified; M60.9 Myositis, unspecified; Z79.899 Other long term (current) drug therapy; Q06.4 Hydromyelia; Z60.2 Problems related to living alone
CPT/HCPCS: 71275; 72040; 72156; 73030; 80048; 80053; 82550; 84484; 85025; 85610; 85652; 85730; 86140; 93005; 93880; 96374; 96375; 96376; 97110; 97161; 97166; 97535; 99285; A9575; Q9967

== ENCOUNTER 2024-12-16 17:55 | Outpatient (RCR) | payer OTHER, SELFPAY | END 2024-12-16 23:59 | disposition home or self-care (01) | LOC: RPT 17:55 | PROVIDERS: ATTENDING PHYSICIAN Neurological Surgery; FAMILY PHYSICIAN Family Medicine | DX: M47.22 Other spondylosis with radiculopathy, cervical region (principal); Z73.6 Limitation of activities due to disability; M62.81 Muscle weakness (generalized) | CPT/HCPCS: 97010; 97110; 97162 ==

== ENCOUNTER 2024-12-20 07:41 | Outpatient (RCR) | payer OTHER, SELFPAY | END 2024-12-20 23:59 | disposition home or self-care (01) | LOC: RPT 07:41 | PROVIDERS: ATTENDING PHYSICIAN Neurological Surgery; FAMILY PHYSICIAN Family Medicine | DX: M47.22 Other spondylosis with radiculopathy, cervical region (principal); Z73.6 Limitation of activities due to disability; M62.81 Muscle weakness (generalized) | CPT/HCPCS: 97010; 97110 ==

== ENCOUNTER → 2025-01-30 16:19 | Outpatient (REF) | payer OTHER, SELFPAY | LOC: RAD 16:19 | PROVIDERS: ATTENDING PHYSICIAN Surgery; FAMILY PHYSICIAN Family Medicine | DX: N13.2 Hydronephrosis with renal and ureteral calculous obstruction (principal) | CPT/HCPCS: 74018 ==

== ENCOUNTER 2025-05-20 06:21 | Outpatient (RCR) | payer OTHER, SELFPAY | END 2025-05-20 23:59 | disposition home or self-care (01) | LOC: RPT 06:21 | PROVIDERS: ATTENDING PHYSICIAN Neurological Surgery; FAMILY PHYSICIAN Family Medicine | DX: Z47.89 Encounter for other orthopedic aftercare (principal); M47.22 Other spondylosis with radiculopathy, cervical region; Z73.6 Limitation of activities due to disability; M62.81 Muscle weakness (generalized); M25.512 Pain in left shoulder; M25.511 Pain in right shoulder | CPT/HCPCS: 97010; 97110; 97112; 97162 ==

== ENCOUNTER → 2025-06-11 15:01 | Outpatient (REF) | payer OTHER, SELFPAY | LOC: RAD 15:01 | PROVIDERS: ATTENDING PHYSICIAN Family Medicine | DX: M79.662 Pain in left lower leg (principal) | CPT/HCPCS: 93971 ==

== ENCOUNTER 2025-06-18 07:24 | Outpatient (RCR) | payer OTHER, SELFPAY | END 2025-06-18 23:59 | disposition home or self-care (01) | LOC: RPT 07:24 | PROVIDERS: ATTENDING PHYSICIAN Neurological Surgery; FAMILY PHYSICIAN Family Medicine | DX: Z47.89 Encounter for other orthopedic aftercare (principal); M47.22 Other spondylosis with radiculopathy, cervical region; Z73.6 Limitation of activities due to disability; M62.81 Muscle weakness (generalized); M25.512 Pain in left shoulder; M25.511 Pain in right shoulder; M54.16 Radiculopathy, lumbar region | CPT/HCPCS: 97010; 97110; 97112 ==

== ENCOUNTER 2025-07-18 06:46 | Outpatient (RCR) | payer OTHER, SELFPAY | END 2025-07-18 23:59 | disposition home or self-care (01) | LOC: RPT 06:46 | PROVIDERS: ATTENDING PHYSICIAN Neurological Surgery; FAMILY PHYSICIAN Family Medicine | DX: Z47.89 Encounter for other orthopedic aftercare (principal); M47.22 Other spondylosis with radiculopathy, cervical region; Z73.6 Limitation of activities due to disability; M62.81 Muscle weakness (generalized); M25.512 Pain in left shoulder; M25.511 Pain in right shoulder; M54.16 Radiculopathy, lumbar region | CPT/HCPCS: 97010; 97110; 97112 ==

== ENCOUNTER 2025-08-20 06:34 | Outpatient (RCR) | payer OTHER, SELFPAY | END 2025-08-20 23:59 | disposition home or self-care (01) | LOC: RPT 06:34 | PROVIDERS: ATTENDING PHYSICIAN Neurological Surgery; FAMILY PHYSICIAN Family Medicine | DX: Z47.89 Encounter for other orthopedic aftercare (principal); M47.22 Other spondylosis with radiculopathy, cervical region; Z73.6 Limitation of activities due to disability; M62.81 Muscle weakness (generalized); M25.512 Pain in left shoulder; M25.511 Pain in right shoulder; M54.16 Radiculopathy, lumbar region | CPT/HCPCS: 97010; 97110; 97112 ==